=== PATIENT | female | born 1975 | race Caucasian/White ===

== ENCOUNTER 2024-11-09 06:32 | Day surgery (SDC) | payer BC ==
[2024-11-09] MEDS: Lactated Ringers 1,000 ML IV SCH (07:12)
[2024-11-09] MEDS ORDERED: propofoL 500 MG/50 ML 50 ML ONE (07:12)
[2024-11-09] MEDS ORDERED: Lactated Ringers 1,000 ML IV SCH (08:45)
== END 2024-11-09 09:25 | disposition home or self-care (01) ==
LOC: MW.SDS 06:32
PROVIDERS: ATTEND Surgery
DX: Z12.11 Encounter for screening for malignant neoplasm of colon (principal); K57.30 Diverticulosis of large intestine without perforation or abscess without bleeding
CPT/HCPCS: 45380; J2704; J7120; 00811